=== PATIENT | female | born 1980 | race Two or more races ===

== ENCOUNTER → 2023-02-27 | Emergency (ER) | payer OTHER ==
[~2023-02-27] VITALS: Ht 157.5 cm; Wt 54.4 kg
[2023-02-27 14:30] VITALS: BP 118/82; PULSE 100; RESP 20; O2SAT 100
== END | disposition left against medical advice (07) ==
LOC: ER 14:17
DX: F41.9 Anxiety disorder, unspecified (principal); R07.89 Other chest pain; Z53.21 Procedure and treatment not carried out due to patient leaving prior to being seen by health care provider
CPT/HCPCS: 93005